=== PATIENT | male | born 1990 | race Caucasian/White ===

== ENCOUNTER 2018-01-17 17:16 | Emergency (ER) | payer OTHER, SELFPAY ==
[2018-01-17 17:17] VITALS: BP 120/72; PULSE 86; RESP 18; TEMP 36.3; O2SAT 98; BMI 31.3
--- NOTE | 2018-01-17 17:36 | ED.DCSUM_ITS ---
- ER Visit Summary Date of Service: 01/17/18 Chief Complaint: Bee sting History of Present Illness: The patient is a 27 M presenting for evaluation after a bee sting. Patient has a reported bee sting allergy, and states that just prior to arrival he was stung behind his right arm. He reports that he is having absolutely no symptoms, had some burning sensation initially in his right arm which is since alleviated, and he denies any lip or tongue swelling, scratchiness in his throat, lightheadedness tachycardia. He try to go and be seen by urgent care and they stated that they could not see him due to breathing issues and he was sent to the emergency department. Review of systems otherwise negative. Physical Examination: Vital signs are within normal limits, patient is afebrile. General: Patient is well-nourished well-developed and in no acute distress. Head: Normocephalic, atraumatic Eyes: Pupils equal round and reactive bilaterally, extra occular motion intact bialterally ENT: Moist mucous membranes, oropharynx is clear without any evidence of lip or tongue swelling Neck: Supple, no lymphadenopathy, no JVD, no meningismus CVS: Heart regular rate and rhythm, no murmurs, rubs or gallops, radial pulses 2+ bilaterally Resp: Respirations nondistressed, lung sounds clear bilaterally Abdomen: Soft, nontender, nondistended, no palpable masses, normal bowel sounds Back: Nontender Extremities: Nontender, atraumatic, active full range of motion, no peripheral edema Skin: warm, no rashes, no petechia, no evidence of local reaction on the patient's arm Neuro: Alert and oriented x 4, CN 2-12 intact, no lateralizing neurological defecits Psyc: Normal affect Test Results: None indicated Emergency Department Course and Treatment: Patient presented for evaluation secondary to a bee sting. Patient is not having any local or systemic effects at this point. Potentially was and actually is staying and it was a bite or may be it actually was not to be and it was a different type of insect, but regardle ss the patient is not having any evidence of allergic reaction at this point. The plate on the safe side patient will be placed on a 3-day burst of prednisone, is instructed to follow-up with primary care as needed. Disposition: Discharge Impression: 1. Bee sting This note was generated with [employer] dictation software. It may contain incorrect words, spelling, and punctuation that were not noted in review of the chart prior to signing ED Disposition - Plan for ED Patient: Disposition: Home or Assisted Living Chief Complaint: Allergic Reaction Diagnosis: Bee sting Instructions: ED Bite Sting Insect Local Allergic React Prescriptions: Prednisone [Deltasone] 40 mg PO DAILY #4 tab Referrals: NOT,DEFINED [Primary Care Provider] - Additional Instructions: Follow-up with your primary care physician as needed
[2018-01-17] MEDS: predniSONE 20 MG Tablet 60 MG PO (17:37)
[2018-01-17 17:38] VITALS: BP 114/76; PULSE 78; RESP 14; O2SAT 98
--- NOTE | 2018-01-17 18:20 | ED.RN ---
PT LEFT DEPARTMENT WITHOUT D/C INSTRUCTIONS. Leonardo STONE RN
== END 2018-01-17 17:41 | disposition home or self-care (01) ==
PROVIDERS: Emergency Provider Emergency Medicine
DX: T63.441A Toxic effect of venom of bees, accidental (unintentional), initial encounter (principal); Y92.9 Unspecified place or not applicable; Z72.0 Tobacco use
CPT/HCPCS: 99282